=== PATIENT | male | born 1975 | race Asian ===

== ENCOUNTER 2021-05-24 16:09 | Emergency (ER) | payer OTHER ==
[~2021-05-24] VITALS: Ht 175.3 cm; Wt 81.7 kg
[2021-05-24 16:11] VITALS: BP 134/68
== END 2021-05-24 17:22 | disposition home or self-care (01) ==
LOC: ER 16:09
DX: M54.6 Pain in thoracic spine (principal); V43.52XA Car driver injured in collision with other type car in traffic accident, initial encounter; Y93.I9 Activity, other involving external motion; Y92.488 Other paved roadways as the place of occurrence of the external cause; Y99.8 Other external cause status